=== PATIENT | female | born 1950 | race Caucasian/White ===

== ENCOUNTER → 2018-08-06 | Day surgery (SDC) | payer OTHER, MEDICARE ==
[~2018-08-06] MED LIST: ALBUTEROL 3 ML DEYVIAL IH PRN; BENZOCAINE UNIT DOSE SPRAY HURRICAINE MM ONE; LIDOCAINE 1% 300 MG/30 ML SDV SC ONE; LIDOCAINE 2% 2 ML INJ ONE; LR 500 ML IV PRN; MIDAZOLAM 2 MG/2 ML VIAL IVP ONE; NALOXONE HCL 0.4 MG/ML INJ IVP PRN; NS 500 ML IV ONE; ONDANSETRON 4 MG/2 ML VIAL IVP PRN; PROPOFOL 200 MG/20 ML VIAL ONE; fentaNYL 100 MCG/2 ML INJ IVP ONE; fentaNYL 100 MCG/2 ML INJ IVP PRN
--- NOTE | 2018-08-06 14:19 | PDHPUP ---
History & Physical Update H&P update statement: This history and physical update is based on an assessment of the patient which was completed after admission or registration (within 24 hours), but prior to the surgery/procedure. H&P update: H&P reviewed & patient examined, no change in patient's condition since H&P completed
--- NOTE | 2018-08-06 14:20 | PDANEPAE ---
ANE History of Present Illness BENNY for recent TIAs x 3 ANE Past Medical History - Cardiovascular History Hx Hypertension: Yes Hx Arrhythmias: No Hx Chest Pain: No Hx Coronary Artery / Peripheral Vascular Disease: No Hx CHF / Valvular Disease: No Hx Palpitations: No - Pulmonary History Hx COPD: No Hx Asthma/Reactive Airway Disease: No Hx Recent Upper Respiratory Infection: No Hx Oxygen in Use at Home: No Hx Sleep Apnea: Yes - Neurologic History Hx Cerebrovascular Accident: Yes Neurologic History Comment: Recent TIAs x 3, now on plavix - Endocrine History Hx Diabetes: No Hypothyroid: No Hyperthyroid: No - Renal History Hx Renal Disorders: No - Liver History Hx Hepatic Disorders: No ANE Review of Systems Review of systems is: negative Review of Systems: - Exercise capacity Exercise capacity: >=4 METS ANE Patient History - Allergies Allergies/Adverse Reactions: erythromycin base Allergy (Verified 01/21/16 12:58) ibuprofen [From Advil] Allergy (Verified 01/21/16 15:25) - Home Medications Home medications: home medication list seen and reviewed Home Medications: Amoxicillin 01/21/16 [Last Taken Unknown] Lipitor 01/21/16 [Last Taken Unknown] Lisinopril 01/21/16 [Last Taken Unknown] Plavix 01/21/16 [Last Taken Unknown] - NPO status NPO Status: no food or drink >8 hours - Anes Hx Anes Hx: no prior problems - Smoking Hx Smoking Status: Never smoked ANE Physical Exam - Airway Neck exam: FROM Mallampati Score: Class 1 Mouth exam: normal dental/mouth exam - Pulmonary Pulmonary: no respiratory distress - Cardiovascular Cardiovascular: regular rate and rhythym - ASA Status ASA Status: III ANE Anesthesia Plan Anesthesia Plan: GA with mask
--- NOTE | 2018-08-06 15:49 | POSTANESTH ---
Post Anesthetic Evaluation Cardiovascular Status: Normal, Stable Respiratory Status: Normal, Stable Level of Consciousness/Mental Status: Can Participate in Eval Pain Control: Adequate, Prn Tx Ordered Nausea/Vomiting Control: Adequate, Prn Tx Ordered Complications Possibly Related to Anesthesia: None Noted
--- NOTE | 2018-08-06 17:39 | ECHO ---
[email or web address] [address] [address] Main: [phone] Fax: Transesophageal Echocardiography Name: JASON MANSFIELD MR#: [id number] Study Date: 08/06/2018 Study Time: 02:06 PM Date of : 1950 Age: 68 year(s) Height: ( ) Weight: ( ) BSA: Gender: Female Examination: BENNY Indication: Eval MV, stroke Image Quality: Adequate Contrast: Requested by: Maryse Koenig Heart Rate: Rhythm: BP: / Procedure Staff Case Fitter: Vikki Aguiar RDCS Reading Physician: Maryse Koenig MD Requesting Provider: BENNY Exam Details Conclusions: Normal size left ventricle. Normal global systolic LV function. Normal size right ventricle. Normal RV function. An agitated saline study was performed and was negative for intracardiac shunting. No thrombus in left appendage. Mild mitral valve regurgitation is present. There is mitral valve prolapse of the A1 leaflet. Trivial aortic valve regurgitation. Trivial tricuspid valve regurgitation. Measurements: Chambers Valvular Assessment AV/MV Valvular Assessment TV/PV Normal Normal Normal Name Value Range Name Value Range Name Value Range Additional Measurements: Findings: Left Ventricle: Normal size left ventricle. Normal global systolic LV function. Right Ventricle: Normal size right ventricle. Normal RV function. Patient: JASON MANSFIELD Study Date: 08/06/2018 Page 1 of 2 02:06 PM Left Atrium: An agitated saline study was performed and was negative for intracardiac shunting. Left Atrial Appendage: Good color flow doppler in the left atrial appendage. Normal PW-Doppler flow pattern. No thrombus in left appendage. Mitral Valve: Mild mitral valve regurgitation is present. No mitral stenosis is present. There is mitral valve prolapse of the A1 leaflet. Aortic Valve: The aortic valve is tri-leaflet. Trivial aortic valve regurgitation. Tricuspid Valve: The tricuspid valve is normal in appearance and function. Trivial tricuspid valve regurgitation. Pulmonic Valve: The pulmonic valve is normal in appearance and function. Aorta: Normal size. l1n (No Signature Object) Patient: JASON MANSFIELD Study Date: 08/06/2018 Page 2 of 2 02:06 PM D:_[id number]
--- NOTE | 2018-08-07 06:25 | CPIP ---
[f rep st] INVASIVE CARDIAC PROCEDURE PROCEDURE: LINQ insertion. INDICATIONS: Cryptogenic stroke, need for long-term ambulatory monitoring. COMPLICATIONS: None. DESCRIPTION OF PROCEDURE: Informed consent was obtained after n.p.o. status was confirmed. The kimberlee ent had received conscious sedation from Dr. Geoffrey Rivera for her BENNY. Left parasternal region was p repped and draped in sterile fashion. 1% lidocaine was used for local anesthesia in the area of the left parasternal 4th intercostal space. Using standard technique, a [employer] LINQ device was insert ed. The incision was closed with 2 evette. Sterile dressing applied. CONCLUSIONS: Successful LINQ insertion. Serial #[id number]. R waves are 0.36 mV. Patient received instruction about home monitor. Follow up in the office in 1 week for wound check and staple removal. Copy requested to: KAYLEY /[id number]/MODL
== END | disposition home or self-care (01) ==
LOC: FCATH 13:32
PROVIDERS: ATTEND Internal Medicine Cardiovascular Disease
PROC: B245ZZ4 Ultrasonography of Left Heart, Transesophageal (ICD-10-PCS; principal; 2018-08-06)
PROC: 0JH602Z Insertion of Monitoring Device into Chest Subcutaneous Tissue and Fascia, Open Approach (ICD-10-PCS; principal; 2018-08-06)
DX: I69.319 Unspecified symptoms and signs involving cognitive functions following cerebral infarction (principal); I69.398 Other sequelae of cerebral infarction; R26.89 Other abnormalities of gait and mobility; I10 Essential (primary) hypertension; E78.5 Hyperlipidemia, unspecified
CPT/HCPCS: C1764; J2704

== ENCOUNTER → 2018-09-04 | Outpatient (CLI) | payer OTHER, MEDICARE | LOC: BHFA 08:30 | PROVIDERS: ATTEND Internal Medicine Cardiovascular Disease | DX: G45.9 Transient cerebral ischemic attack, unspecified (principal) ==